=== PATIENT | female | born 1955 | race Caucasian/White ===

== ENCOUNTER 2016-11-18 20:53 | Inpatient (IN) | payer MEDICARE, OTHER ==
[~2016-11-18] VITALS: Ht 172.7 cm; Wt 102.1 kg
--- NOTE | ~2016-11-18 | DS ---
Unit #: [id number] #: [id number] [facility]: [facility] [id number] [facility] [address] [place] [address] [id number] MR#: [id number] NAME: JERRICA POE ROOM: [facility] Age: 61 Sex: F Admission Date: 11/18/2016 : 1955 Discharge Date: 11/20/2016 Attending Physician: Cassie Wolf M.D. Primary Care Physician: Primary Care Physician No DISCHARGE SUMMARY IDENTIFICATION DATA Ms. Poe is a 61-year-old white female who was transferred to from [facility] in acute psychosis. DISCHARGE DIAGNOSES PSYCHIATRIC: Bipolar disorder, most recent episode, depressed, recurrent, moderate, with psychosis. MEDICAL: None. STRESSORS: Moderate psychosocial stressors. HISTORY OF PRESENT ILLNESS Same as in initial psychiatric evaluation. PAST PSYCHIATRIC HISTORY Same as in initial psychiatric evaluation. PAST MEDICAL HISTORY Same as in initial psychiatric evaluation. HOSPITAL COURSE The patient was admitted to the adult psychiatric unit at [facility] jayant Calderon and was oriented to the hospital environment. Routine p.r.n. medications were initiated, and she was started back on her home medications and medications were adjusted. However, she was seen to be showing poor insight into his situation, poor motivation towards treatment, and was wanting to leave and was refusing to participate and cooperate with treatment recommendations and has been denying any suicidal ideations, intent, or plan. As such it was decided that she will be discharged home. We will recommend ongoing outpatient psychiatric treatment. CONDITION AT DISCHARGE Stable. PROGNOSIS Fair. Dictated by... Rosa Bianchi/shivani Unit #: [id number] #: [id number] Patient: JERRICA POE TD: 12/10/2016 11:28 JOB #: [id number] DISCHARGE SUMMARY Page 1 of 1 X Cassie Wolf MD X DISCHARGE SUMMARY
--- NOTE | ~2016-11-18 | PA ---
Unit #: [id number] #: [id number] Patient: JERRICA POE [id number] [facility] [address] [place] [address] [id number] MR#: [id number] NAME: JERRICA POE ROOM: P176 Age: 61 Sex: M Admission Date: 11/18/2016 : 1955 Date of Assessment: Attending Physician: Cassie Wolf M.D. Admitting Physician: Cassie Wolf M.D. Primary Care Physician: Primary Care Physician No PSYCHIATRIC ASSESSMENT DATE OF SERVICE 11/19/2016. IDENTIFYING DATA Ms. Poe is a 61-year-old single white female, who is a resident of [place], [place], and was brought to the hospital accompanied by her boyfriend. CHIEF COMPLAINT "I'm crazy, I'm out of control and acting on impulses to kill myself, I wanted to hurt someone." HISTORY OF PRESENT ILLNESS Ms. Poe is a 61-year-old white female, who was brought to the hospital by her boyfriend, reports increasing anger, agitation, aggression, impulsivity, and emotional instability, and thoughts of wanting to hurt someone "property damage." She reports that she took a montes to someone's car and she has been feeling this way for 2 days and reports that she has been experiencing road rage and that she is irritable and easily angered and she just got out of the hospital today and that she was in the hospital due to high blood pressure and reports electrical part of heart was not working according to her and reports that she had kidney failure and has been diagnosed with diabetes and she was at [facility] for 5 days. She does report history of suicide attempt at age of 29 when she cut her arm and was hospitalized and has overdosed on pills in the past as well and reports currently having increasing depression, anger, agitation, irritability, feelings of hopelessness and helplessness, and thoughts of wanting to hurt herself and hurt someone else and as such, was seen to be danger to self and others, and therefore, recommendation for inpatient level of care for safety and stabilization was made. The patient was transferred to us. SUBSTANCE ABUSE HISTORY The patient denies any alcohol or drug abuse. PAST PSYCHIATRIC HISTORY The patient has had history of numerous inpatient psychiatric hospitalizations across different facilities and review of the medical records indicate that she has been diagnosed and treated for bipolar disorder and supposed to be on combination of psychotropic medications, though it is not clear if she has been compliant with the medications or not, as she does not appear to be showing a therapeutic response to medications. Unit #: [id number] #: [id number] Patient: JERRICA POE PAST MEDICAL HISTORY Significant for hypertension and COPD. ALLERGIES Penicillin, sulfa drugs, doxycycline, lisinopril. PERSONAL AND SOCIAL HISTORY A 61-year-old white female, who reports that she lives at home with her boyfriend, is on disability and has a fairly decent social support system. MENTAL STATUS EXAMINATION An elderly white female, who was casually dressed with fair personal hygiene, appears to be in no acute distress or discomfort. She was awake and alert on interaction with intact orientation to time, place, and person. Her mood was anxious and depressed with a congruent affect. Her speech was slow and restricted in content. Her thought processes were disorganized with some looseness of associations and flight of ideas and suicidal ideations and vague homicidal ideations. Her insight and judgment remain significantly impaired. DIAGNOSTIC IMPRESSION Psychiatric: Bipolar disorder, most recent episode, depressed, recurrent, moderate, without psychotic features. Medical: Chronic obstructive pulmonary disease, hypertension. Stressors: Moderate psychosocial stressors. TREATMENT PLAN 1. The patient has presented with history of mood disorder and has been decompensating and will need inpatient hospitalization for safety and stabilization. We will start her back on her home medications. We will adjust the medications and monitor response. 2. Supportive therapy was provided to the patient. 3. Safe, structured, and nourishing environment will be provided. ESTIMATED LENGTH OF STAY 5 to 7 days. ABILITY TO HELP SELF Limited. WILLINGNESS TO HELP SELF The patient appears to be willing to help self. STRENGTHS 1. Communicative. 2. Cooperative. PROBLEMS 1. Chronic dysphoric symptoms. 2. Chronic chemical dependency. 3. Poor social support system. DISCHARGE CRITERIA This will be contingent upon the patient's ability to show resolution of her depression and anxiety as well as her ability to stay safe to herself, particularly after discharge from the hospital. Unit #: [id number] #: [id number] Patient: JERRICA POE Dictated by... Cassie Wolf M.D. HARRISON/sarah TD: 11/19/2016 07:31 JOB #: [id number] PSYCHIATRIC ASSESSMENT Page 1 of 1 X Cassie Wolf MD PSYCHIATRIC ASSESSMENT
--- NOTE | ~2016-11-18 | CO ---
Unit #: [id number] #: [id number] Patient: ARIELLE POE [id number] [facility] [address] [place] [address] [id number] I MR#: [id number] NAME: ARIELLE POE ROOM: 32 Age: 61 Sex: F Admission Date: 11/18/2016 : 1955 Attending Physician: Cassie Wolf M.D. Consultation Date: 11/19/2016 CONSULTATION REPORT HISTORY OF PRESENT ILLNESS Arielle was recently admitted to [facility] for treatment of SVT and atrial fibrillation. She also was diagnosed with pneumonia and treated for that as well. Since admission here to [facility], her blood pressures have been 174/98, 163/115, and 158/101 most recently, though after restarting her blood pressure medication, she was 148/96. Blood sugars here have also been 236, 289, and 306. She also has not been receiving her Tradjenta since her admission and was started on sliding scale insulin. She has multiple, multiple complaints; specifically, she complains of concerns about another heart event because her blood pressures have been elevated. She denies any chest pain. No palpitations. No shortness of breath. She has no other complaints. PHYSICAL EXAMINATION CARDIAC: Regular rate and rhythm. No murmurs, gallops, or rubs. RESPIRATORY: Bilateral crackles without wheezing. ASSESSMENT AND PLAN 1. Type 2 diabetes. We will restart Tradjenta 5 mg p.o. daily and add Levemir 10 mg subcu q.h.s. and continue with sliding scale as well. 2. Pneumonia. We will restart Levaquin 750 mg p.o. 1 tab daily for 7 days as well as continue with her Breo Ellipta and add ProAir inhaler. 3. Hypertension. Her blood pressure medicines have been restarted and currently her blood pressures are under control. We will just continue to monitor these. Dictated by... Devyn Herrmann/sarah TD: 11/20/2016 02:57 JOB #: [id number] Unit #: [id number] #: [id number] Patient: ARIELLE POE CONSULTATION REPORT Page 1 of 1 X BELEN JULIEN APRN CONSULTATION REPORT
--- NOTE | ~2016-11-18 | EKG ---
PATIENT: JERRICA POE UNIT #: [id number] Ventricular Rate: 74 BPM Atrial Rate: 74 BPM P-R Interval: 172 ms QRS Duration: 88 ms Q-T Interval: 412 ms QTC Calculation(Bezet): 457 ms P [place]: 88 degrees Calculated R [place]: 7 degrees Calculated T [place]: 59 degrees Diagnosis Line: Sinus rhythm with marked sinus arrhythmia Diagnosis Line: RSR' or QR pattern in V1 suggests right Diagnosis Line: ventricular conduction delay Diagnosis Line: Borderline ECG Diagnosis Line: No previous ECGs available Diagnosis Line: Confirmed by MARJORIE GUIDRY MD ([id number]) on Diagnosis Line: 11/19/2016 2:33:04 PM INTERPRETING MD: CHAO GOULD
--- NOTE | ~2016-11-18 | HP ---
Unit #: [id number] #: [id number] Patient: ARIELLE POE [id number] [place] [address] [id number] MR#: [id number] NAME: ARIELLE POE ROOM: P132 Age: 61 Sex: F Admission Date: 11/18/2016 : 1955 Attending Physician: Cassie Wolf M.D. Admitting Physician: Cassie Wolf M.D. Primary Care Physician: Primary Care Physician No HISTORY AND PHYSICAL HISTORY OF PRESENT ILLNESS Arielle is a 61-year-old female admitted on 11/18/2016 from [facility] for psychosis. PAST MEDICAL HISTORY Hypertension, type II diabetes, renal failure, recent SVT and history of Factor V Leiden with multiple DVTs. She was recently diagnosed with pneumonia. PAST SURGICAL HISTORY 1. Hysterectomy. 2. Cholecystectomy. 3. Appendectomy. 4. Rhinoplasty. 5. Breast reduction. 6. Tonsil and adenoidectomy. SOCIAL HISTORY Smokes a pack of cigarettes daily. Denies alcohol use. Does report occasional marijuana use. she is currently single and living with her boyfriend. FAMILY HISTORY Noncontributory. REVIEW OF SYSTEMS CONSTITUTIONAL: No fever or chills. HEENT: Denies any sore throat, ear pain or runny nose. CARDIOVASCULAR: Denies chest pain, irregular heart rhythm or palpitations. CHEST: Denies shortness of breath or cough. No hemoptysis. GASTROINTESTINAL: Denies nausea, vomiting, diarrhea or chronic constipation. ENDOCRINE: Denies history of increased thirst or urination. No recent significant weight loss or gain. GENITOURINARY: Denies dysuria, frequency, or hematuria. SKIN: Denies any rashes. HEMATOLOGIC: Denies history of increased bleeding or bruising. MUSCULOSKELETAL: Denies any hot, swollen joints. No generalized muscle pain. NEUROLOGIC: Denies problems with vision or speech. No frequent, severe headaches. No numbness, tingling or weakness in any extremities. Denies Unit #: [id number] #: [id number] Patient: ARIELLE POE loss of bladder or bowel control. CURRENT MEDICATIONS 1. Diltiazem 2. Vistaril 3. Carvedilol 4. Trazodone 5. Depakote 6. Seroquel 7. Breo Ellipta 8. Singulair 9. Zyrtec 10. Protonix 11. Lexapro 12. Eliquis 13. Losartan ALLERGIES Penicillin, sulfa, doxycycline, lisinopril. PHYSICAL EXAMINATION GENERAL: Alert, oriented, in no acute distress. VITAL SIGNS: Blood pressure 163/115, heart rate 77, respirations 18, temperature 98.9. HEIGHT: 5 foot 8 inches. WEIGHT: 225 pounds. SKIN: Warm and dry without rash or lesion. HEENT: Normocephalic. TMs not viewed. Oral and nasal passages clear. Conjunctivae clear. PERRLA. EOMs intact. NECK: Supple without lymphadenopathy or thyromegaly. HEART: Regular rate and rhythm without murmur. LUNGS: Clear. ABDOMEN: Soft, nontender, without masses or hepatosplenomegaly. : Not done. EXTREMITIES: No evidence of cyanosis, clubbing or edema. Moves all without focal deficit. NEUROLOGICAL: Grossly within normal limits. Cranial Nerves: II: Visual dumont are intact. III, IV AND : Extraocular movements are intact. Pupils are equal, round and reactive to light. V: Facial sensation is grossly normal. VII: Facial movements and expression are normal. VIII: Auditory acuity grossly intact. IX, X: Uvula is midline. Phonation is normal. XI: Patient shrugs shoulders and turns head normally. XII: Tongue protrudes in the midline. Sensory and Motor Function: Sensory and motor sensation is grossly normal. Motor: moves all extremities well. Coordination: Gait is normal. Deep Tendon Reflexes: Intact. IMPRESSION 1. Psychiatric admission. 2. Hypertension. 3. Type II diabetes. 4. Recent SVT. 5. Pneumonia. 6. Factor V Leiden. RECOMMENDATIONS Psychiatric, per psychiatrist. Unit #: [id number] #: [id number] Patient: ARIELLE POE MEDICAL: I see no contraindications to participating in facility's activities. MEDICAL PROGNOSIS Good. MEDICAL CONDITION Stable. Dictated by... Devyn Herrmann/shahana TD: 11/20/2016 01:06 JOB #: [id number] HISTORY AND PHYSICAL Page 1 of 1 X BELEN JULIEN APRN X HISTORY AND PHYSICAL
[2016-11-19 10:03] LABS: BASOPHIL# 0.1 X10e3 (0-0.3); BASOPHIL% 0.7 % (0-2.5); EOSINOPHIL# 0.3 X10e3 (0-0.7); EOSINOPHIL% 2.6 % (0.0-7.0); HEMOGLOBIN 15.1 gm/dL (13.0-16.0); LYMPHOCYTE# 3.5 X10e3 (1.0-3.5); LYMPHOCYTE% 27.6 % (17.0-45.0); MEAN CELL VOLUME 84.1 FL (83-96); MEAN CORPUSCULAR HEMOGLOBIN 28.2 PG (28-34); MEAN CORPUSCULAR HGB CONC 33.5 g/dL (30-36); MEAN PLATELET VOLUME 8.2 FL (6.5-11.5); MONOCYTE# 0.7 X10e3 (0-1.0); MONOCYTE% 5.5 % (3.0-12.0); NEUTROPHIL# 8.2 X10e3 (1.5-7.1); NEUTROPHIL% 63.6 % (40-75); PLATELET COUNT 214 X10e3 (140-420); RED BLOOD COUNT 5.35 X10e (3.90-5.60); RED CELL DISTRIBUTION WIDTH 13.3 % (11.0-15.5); WHITE BLOOD COUNT 12.9 X10e3 (4.0-10.5)
[2016-11-19 10:13] LABS: ALBUMIN SERUM 3.7 g/dL (3.5-5.0); BILIRUBIN,TOTAL 0.4 mg/dL (0.2-2.0); BUN/CREATININE RATIO 16.42; CALCIUM SERUM 9.4 mg/dL (8.4-10.2); CREATININE SERUM 1.4 mg/dL (0.6-1.4); GLOM FILT RATE Estimated 54.2 mL/min (>60); POTASSIUM 4.6 mmol/L (3.5-5.1); PROTEIN TOTAL SERUM 6.8 g/dL (6.0-8.3)
[2016-11-19 10:15] LABS: DIFF IND NO
== END 2016-11-20 12:30 | disposition left against medical advice (07) | DRG 885 ==
LOC: P1S 22:45 → EDSEX 22:45 → P1E 22:45 → P1S 11-19 13:45
PROVIDERS: Psychiatry & Neurology Psychiatry
DX: F31.32 Bipolar disorder, current episode depressed, moderate (principal); E11.9 Type 2 diabetes mellitus without complications; I10 Essential (primary) hypertension; J44.9 Chronic obstructive pulmonary disease, unspecified; F17.210 Nicotine dependence, cigarettes, uncomplicated
CPT/HCPCS: 80053; 82947; 85025